=== PATIENT | female | born 1950 | race Caucasian/White ===

== ENCOUNTER 2018-11-22 09:40 | Emergency (ER) | payer MEDICARE, OTHER ==
--- NOTE | 2018-11-22 10:03 | ED Physician Documentation ---
Fall - HISTORIAN Historian: patient - HPI Stated Complaint: fell Chief Complaint: Fall Additional Information: Patient presents to ED after falling while carrying dog food from her car into her house. She states she tripped on a step and fell forward onto the driveway, landing on her face. She states she did not lose consciousness (that she is aware of) and was able to get herself up. She states she was bleeding from her forehead and walked into the house for a bandage. She drover herself to the ED. Patient reports being on Plavix for cardiac stents. She complains of right eye swelling and right hip pain. She denies visual changes, weakness or numbness/tingling. She is alert and oriented x 4. Onset: just prior to arrival Where: home Context: tripped r: severe Associated Symptoms:: no loss of consciousness Location of Pain/Injury: head, hip Injury to Right Extremity: hip Injury to Left Extremity: none - ROS CONST: denies: fever NEURO: denies: dizziness MS/SKIN/LYMPH: denies: weakness, numbness, neck pain EYES/ENT: denies: problems with vision CVS/RESP: denies: chest pain, shortness of breath GI/: denies: nausea, vomiting - PAST HX Past History: none Allergies/Adverse Reactions: Allergies Allergy/AdvReac Type Severity Reaction Status Date / Time No Known Allergies Allergy Verified 11/22/18 10:59 - SOCIAL HX Smoking History: non-smoker Alcohol Use: none Drug Use: none - FAMILY HX Family History: cardiac disease (stent placement on Plavix) - REVIEWED ASSESSMENTS Nursing Assessment Reviewed: Yes Vitals Reviewed: Yes Progress - Progress Progress: [address] head finding with Radiologist, Cuauhtemoc Ibarra. Right frontal lobe subarachnoid hemorrhage. Will transfer 1154 D[address]ed with house sup. Dr. Rojo agrees to accept. Will arrange transport. ED Results Lab/Radiology - Radiology Radiology Impressions: Report Submission Date: Nov 22, 2018 11:06:45 AM CDT Patient Study Name: ROSAS PAGE Date: Nov 22, 2018 10:19:43 AM CDT Modality Type: CT\SR Gender: F Description: CT BRAIN W/O CONTRAST : 48 Institution: [facility] Physician: MICHELLE MORALES CT brain noncontrast CLINICAL HISTORY: TRAUMA FALL - SWELLING ON RT SIDE (Hx) / ITS.REASON fall, head trauma TECHNIQUE: 5 mm contiguous axial images of the brain, noncontrast. FINDINGS: There is subtle hyperdensity seen in the right frontal lobe subarachnoid spaces compatible mild subarachnoid hemorrhage.. The lateral ventricles are symmetrical and the 4th ventricle is midline without shift. No acute brain parenchymal changes or extra-axial fluid collections are identified. The posterior fossa contents are within normal limits. The calvarium is intact. The visualized sinuses and mastoid air cells are clear. IMPRESSION: Mild right frontal lobe posttraumatic subarachnoid hemorrhage. d/w ER at 1100 am Electronically signed on Nov 22, 2018 11:06:45 AM CDT by: Cuauhtemoc Ibarra Report Submission Date: Nov 22, 2018 11:11:10 AM CDT Patient Study Name: ROSAS PAEG Date: Nov 22, 2018 10:22:29 AM CDT Modality Type: CT\SR Gender: F Description: CT MAXILLOFACIAL W/O D : 48 Institution: [facility] Physician: MICHELLE MORALES CT maxillofacial Clinical history: Facial trauma Technique: Multiple contiguous axial images were taken through the maxillofacial region. Reformations obtained. Findings: The mandible is intact. The zygomatic arches are intact. The nasal bones are intact. Nasal septum is intact. The maxillary sinus saez are intact. The orbital saez are intact. The visualized paranasal sinuses and mastoid air cells are clear. Right periorbital hematoma noted. Impression: Right periorbital hematoma, otherwise negative Electronically signed on Nov 22, 2018 11:11:10 AM CDT by: Cuauhtemoc Ibarra Report Submission Date: Nov 22, 2018 11:09:16 AM CDT Patient Study Name: ROSAS PAGE Date: Nov 22, 2018 10:26:00 AM CDT Modality Type: CT\SR Gender: F Description: CT C-SPINE W/O CONTRAS : 48 Institution: [facility] Physician: MICHELLE MORALES CT cervical spine CLINICAL HISTORY: TRAUMA FALL (Hx) / ITS.REASON fall, head trauma Note time : 11/22/2018 11:50:45 AM User : Meka Galvan TRAUMA FALL - SWELLING ON RT SIDE (DICOM Hx) TECHNIQUE: 2.5 mm contiguous axial images of the cervical spine with the sagittal l and coronal reconstructions. FINDINGS: The cervical spine alignment is normal. The cervical vertebral bodies are of normal height and the intervertebral disc spaces are of average width. The cervical vertebral bodies and posterior elements are intact. The spinal canal diameter is normal. There is no evidence of acute fracture or subluxation. The facets are in proper relationship bilaterally. The craniocervical and cervicothoracic junctions are normal. Mild uncovertebral hypertrophy at multiple levels. IMPRESSION: No evidence of acute cervical spine fracture or subluxation Electronically signed on Nov 22, 2018 11:09:16 AM CDT by: Cuauhtemoc Ibarra Report Submission Date: Nov 22, 2018 11:09:16 AM CDT Patient Study Name: ROSAS PAGE Date: Nov 22, 2018 10:26:00 AM CDT Modality Type: CT\SR Gender: F Description: CT C-SPINE W/O CONTRAS : 48 Institution: [facility] Physician: MICHELLE MORALES CT cervical spine CLINICAL HISTORY: TRAUMA FALL (Hx) / ITS.REASON fall, head trauma Note time : 11/22/2018 11:50:45 AM User : Meka Galvan TRAUMA FALL - SWELLING ON RT SIDE (DICOM Hx) TECHNIQUE: 2.5 mm contiguous axial images of the cervical spine with the sagittal l and coronal reconstructions. FINDINGS: The cervical spine alignment is normal. The cervical vertebral bodies are of normal height and the intervertebral disc spaces are of average width. The cervical vertebral bodies and posterior elements are intact. The spinal canal diameter is normal. There is no evidence of acute fracture or subluxation. The facets are in proper relationship bilaterally. The craniocervical and cervicothoracic junctions are normal. Mild uncovertebral hypertrophy at multiple levels. IMPRESSION: No evidence of acute cervical spine fracture or subluxation Electronically signed on Nov 22, 2018 11:09:16 AM CDT by: Cuauhtemoc Ibarra Report Submission Date: Nov 22, 2018 11:09:16 AM CDT Patient Study Name: ROSAS PAGE Date: Nov 22, 2018 10:26:00 AM CDT Modality Type: CT\SR Gender: F Description: CT C-SPINE W/O SONJA : 48 Institution: [facility] Physician: MICHELLE MORALES CT cervical spine CLINICAL HISTORY: TRAUMA FALL (Hx) / ITS.REASON fall, head trauma Note time : 11/22/2018 11:50:45 AM User : Meka Galvan TRAUMA FALL - SWELLING ON RT SIDE (DICOM Hx) TECHNIQUE: 2.5 mm contiguous axial images of the cervical spine with the sagittal l and coronal reconstructions. FINDINGS: The cervical spine alignment is normal. The cervical vertebral bodies are of normal height and the intervertebral disc spaces are of average width. The cervical vertebral bodies and posterior elements are intact. The spinal canal diameter is normal. There is no evidence of acute fracture or subluxation. The facets are in proper relationship bilaterally. The craniocervical and cervicothoracic junctions are normal. Mild uncovertebral hypertrophy at multiple levels. IMPRESSION: No evidence of acute cervical spine fracture or subluxation Electronically signed on Nov 22, 2018 11:09:16 AM CDT by: Cuauhtemoc Ibarra Fall Physical Exam - Physical Exam General Appearance: no acute distress, alert, c-collar in ED Head: trauma (right periocular hematoma) Neck: non-tender. No: pain with neck movement, axial compression Eye: JUDSON, periorbital edema (right), ecchymosis ENT: no dental injury Resp/CVS: chest non-tender, breath sounds nml, no resp. distress Abdomen: soft, normal bowel sounds, no distension Neuro: oriented x3, sensation nml, motor nml, mood/affect nml, management professor symmetrica l. No: facial asymmetry Skin: color nml. No: diaphoresis Back: normal inspection, no vertebral tenderness Extremities: atraumatic, pelvis stable, hips non-tender Joint: nml ROM, Nml gait/weight bearing - Shakira Coma Score Eyes Open: Spontaneous Speech: Oriented Motor: Obeys Commands Discharge Clincal Impression: Subarachnoid hemorrhage Referrals: Primary Doctor,No [Primary Care Provider] - 2 Days Condition: Stable Disposition: [facility] Decision to Admit: [id number] Date of Decison to Admit: 11/22/18 Decision Time: 11:20
[2018-11-22 10:18] LABS: MEAN CORPUSCULAR HEMOGLOBIN 30.2 pg (28.0-34.0)
[2018-11-22] MEDS ORDERED: 0.9 % SODIUM CHLORIDE 1,000 ML IV ONE (10:18)
[2018-11-22 10:19] LABS: BASOPHILS % 0.5 (0.0-1.5); MONOCYTES % 4.8 % (0.0-11.0); NEUTROPHILS # 4.8 # k/uL (1.4-7.7)
[2018-11-22 10:36] LABS: eGFR (Non-African) > 60
[2018-11-22] MEDS ORDERED: fentaNYL CITRATE/PF 100 MCG/2 ML INJ. IV ONE (11:09)
--- NOTE | 2018-11-22 11:40 | Diagnostic Imaging Report ---
MICHELLE MORALES [facility] [address] [facility] [address] [place] [address]. [id number] Report Submission Date: Nov 22, 2018 11:06:45 AM CDT Patient Study Name: ROSAS PAGE Date: Nov 22, 2018 10:19:43 AM CDT Modality Type: CT\SR Gender: F Description: CT BRAIN W/O CONTRAST : 48 Institution: [facility] Physician: MICHELLE MORALES CT brain noncontrast CLINICAL HISTORY: TRAUMA FALL - SWELLING ON RT SIDE (Hx) / ITS.REASON fall, head trauma TECHNIQUE: 5 mm contiguous axial images of the brain, noncontrast. FINDINGS: There is subtle hyperdensity seen in the right frontal lobe subarachnoid spaces compatible mild subarachnoid hemorrhage.. The lateral ventricles are symmetrical and the 4th ventricle is midline without shift. No acute brain parenchymal changes or extra-axial fluid collections are identified. The posterior fossa contents are within normal limits. The calvarium is intact. The visualized sinuses and mastoid air cells are clear. IMPRESSION: Mild right frontal lobe posttraumatic subarachnoid hemorrhage. d/w ER at 1100 am Electronically signed on Nov 22, 2018 11:06:45 AM CDT by: Cuauhtemoc VAZQUEZ
--- NOTE | 2018-11-22 11:40 | Diagnostic Imaging Report ---
MICHELLE MORALES [facility] [address] [facility] [address] [place], [place]. [address] Report Submission Date: Nov 22, 2018 11:11:10 AM CDT Patient Study Name: ROSAS PAGE Date: Nov 22, 2018 10:22:29 AM CDT Modality Type: CT\SR Gender: F Description: CT MAXILLOFACIAL W/O D : 48 Institution: [facility] Physician: MICHELLE MORALES CT maxillofacial Clinical history: Facial trauma Technique: Multiple contiguous axial images were taken through the maxillofacial region. Reformations obtained. Findings: The mandible is intact. The zygomatic arches are intact. The nasal bones are intact. Nasal septum is intact. The maxillary sinus saez are intact. The orbital saez are intact. The visualized paranasal sinuses and mastoid air cells are clear. Right periorbital hematoma noted. Impression: Right periorbital hematoma, otherwise negative Electronically signed on Nov 22, 2018 11:11:10 AM CDT by: Cuauhtemoc VAZQUEZ
--- NOTE | 2018-11-22 11:41 | Diagnostic Imaging Report ---
MICHELLE MORALES [facility] [address] [facility] [address] [place], [place]. [address] Report Submission Date: Nov 22, 2018 11:09:16 AM CDT Patient Study Name: ROSAS PAGE Date: Nov 22, 2018 10:26:00 AM CDT Modality Type: CT\SR Gender: F Description: CT C-SPINE W/O CONTRAS : 48 Institution: [facility] Physician: MICHELLE MORALES CT cervical spine CLINICAL HISTORY: TRAUMA FALL (Hx) / ITS.REASON fall, head trauma Note time : 11/22/2018 11:50:45 AM User : Meka Galvan TRAUMA FALL - SWELLING ON RT SIDE (DICOM Hx) TECHNIQUE: 2.5 mm contiguous axial images of the cervical spine with the sagittal l and coronal reconstructions. FINDINGS: The cervical spine alignment is normal. The cervical vertebral bodies are of normal height and the intervertebral disc spaces are of average width. The cervical vertebral bodies and posterior elements are intact. The spinal canal diameter is normal. There is no evidence of acute fracture or subluxation. The facets are in proper relationship bilaterally. The craniocervical and cervicothoracic junctions are normal. Mild uncovertebral hypertrophy at multiple levels. IMPRESSION: No evidence of acute cervical spine fracture or subluxation Electronically signed on Nov 22, 2018 11:09:16 AM CDT by: Cuauhtemoc VAZQUEZ
--- NOTE | 2018-11-22 11:42 | Diagnostic Imaging Report ---
MICHELLE MORALES [facility] [address] [facility] [address] [place], [place]. [address] Report Submission Date: Nov 22, 2018 11:11:48 AM CDT Patient Study Name: ROSAS PAGE Date: Nov 22, 2018 10:34:29 AM CDT Modality Type: DX Gender: F Description: CHEST 1VIEW : 48 Institution: [facility] Physician: MICHELLE MORALES Portable view chest Clinical history: Trauma Findings: The heart size is normal. The pulmonary vasculature is normal. No pleural effusion, pneumothorax or alveolar consolidation. Impression: No acute disease in the chest Electronically signed on Nov 22, 2018 11:11:48 AM CDT by: Cuauhtemoc VAZQUEZ
--- NOTE | 2018-11-22 11:42 | Diagnostic Imaging Report ---
MICHELLE MORALES [facility] [address] [facility] [address] [place], [place]. [address] Report Submission Date: Nov 22, 2018 11:12:20 AM CDT Patient Study Name: ROSAS PAGE Date: Nov 22, 2018 10:34:29 AM CDT Modality Type: DX Gender: F Description: PELVIS AP 1 OR 2 VIEWS : 48 Institution: [facility] Physician: MICHELLE MORALES The single view pelvis Clinical history: Trauma Findings: The right hip arthroplasty is noted. No fractures identified. There is mild left hip joint space narrowing. Impression: negative Electronically signed on Nov 22, 2018 11:12:20 AM CDT by: Cuauhtemoc VAZQUEZ
[2018-11-22 12:08] VITALS: BP 166/73
== END 2018-11-22 11:59 | disposition short-term general hospital (02) ==
LOC: ED 09:40
DX: S06.6X9A Traumatic subarachnoid hemorrhage with loss of consciousness of unspecified duration, initial encounter (principal); W01.0XXA Fall on same level from slipping, tripping and stumbling without subsequent striking against object, initial encounter; Y93.89 Activity, other specified; Y92.008 Other place in unspecified non-institutional (private) residence as the place of occurrence of the external cause
CPT/HCPCS: 36415; 70450; 70486; 71045; 72125; 72170; 80053; 85025; 85610; 96374; 99285; J3010; J7030; S1016